=== PATIENT | female | born 1965 | race Caucasian/White ===

== ENCOUNTER → 2016-07-18 | Day surgery (SDC) | payer SELFPAY ==
[~2016-07-18] MED LIST: ALPRAZolam 0.25 MG TAB ONE; BACITRACIN OINT 1 EACH PACKET TOPICAL ONE; LIDOCAINE 1% INJ 10MG/ML (20 ML MDV) ONE; SODIUM BICARB 4% 5 ML VIAL (0.48 MEQ/ML) ONE
--- NOTE | 2016-07-18 13:09 | USB ---
EXAMINATION TYPE: US biopsy breast VAD LT DATE OF EXAM: 07/18/2016 1:03 PM CLINICAL HISTORY: Breast Lump/Mass N63. TECHNIQUE: Ultrasound guided core biopsy of left breast. COMPARISON: [facility] 06/13/2016 FINDINGS: The procedure of ultrasound guided core biopsy was explained to the patient. Benefits, alternatives, and risks were discussed. An informed consent was then obtained. The patient was placed in supine positioning for imaging and for the procedure. The overlying skin was prepped and draped in usual sterile fashion. Lidocaine buffered with bicarbonate was used as anesthetic into the skin and subcutaneous tissue up to area of concern in the left breast. A jerry was made with surgical scalpel. Under ultrasound guidance, a 12-gauge vacuum assisted biopsy gun device was used to obtain 9 core samples. Following this, a biopsy clip was left in lesion. The patient tolerated the procedure well without any immediate complication. The patient was kept in the radiology department for short stay after the procedure and then discharged home in stable condition. Postprocedure mammogram ordered by the physician was performed. Clip is within the left breast. IMPRESSION: Successful, uncomplicated ultrasound guided core biopsy of area of concern in the left breast, full pathology results to follow. Recommendations: 1. Recommendations are pending pathology results. Pathology results: Benign BREAST, LEFT, CORE BIOPSY; FIBROADENOMA. BACKGROUND FIBROCYSTIC CHANGES INCLUDING FIBROSIS, CYSTS AND SCLEROSING ADENOSIS. Recommendation Follow up ultrasound of the left breast in 6 months. SAUL
--- NOTE | 2016-07-18 13:17 | MM ---
EXAMINATION TYPE: MG diagnostic mammo LT wo CAD DATE OF EXAM: 07/18/2016 1:04 PM TECHNIQUE: Craniocaudal and mediolateral views left breast FINDINGS: Core marker clip is within the left breast.. IMPRESSION: 1. Core marker is within the left breast following ultrasound-guided core biopsy.
== END ==
LOC: RADUSWWP 11:07
PROVIDERS: ATTEND Surgery
DX: D24.2 Benign neoplasm of left breast (principal); N60.32 Fibrosclerosis of left breast; N60.22 Fibroadenosis of left breast; N64.9 Disorder of breast, unspecified; N63 Unspecified lump in breast
CPT/HCPCS: 88305; 19083; G0206; A4648; J2001